=== PATIENT | female | born 1970 | race African-American/Black ===

== ENCOUNTER 2023-02-11 21:24 | Inpatient (IN) | payer MEDICAID ==
[~2023-02-11] VITALS: Ht 170.2 cm; Wt 59.0 kg
[2023-02-11] MEDS ORDERED: SODIUM CHLORIDE 0.9% 1000ML BAG (SEPSIS BOLUS) IV ONE (22:30)
[2023-02-11] MEDS ORDERED: CEFTRIAXONE 1GM PREMIX 50 ML IV ONE (22:30)
[2023-02-11 23:04] LABS: BASOPHILS % 0.5 % (0.0-2.0); EOSINOPHILS % 0.1 % (0.0-5.0); MEAN CORPUSCULAR HEMOGLOBIN 24.5 pg (28.0-32.0); MEAN CORPUSCULAR VOLUME 78.5 fL (81.0-99.0); MEAN PLATELET VOLUME 7.5 fl (7.4-10.4); NEUTROPHILS % 83.4 % (40.0-76.0); PLATELET 178 x1000/uL (130-400); RED BLOOD CELL COUNT 2.83 mill/uL (4.2-5.4); RED CELL DISTRIBUTION WIDTH 18.5 % (11.6-14.6)
[2023-02-11 23:10] LABS: CHLORIDE 94 mEq/L (98-107); HEMATOCRIT. 22.2 % (36.0-48.0); HEMOGLOBIN. 6.9 g/dL (12.0-16.0)
[2023-02-11 23:15] LABS: D-DIMER 0.63 mg/L FEU (<0.50); INR 1.2; PROTHROMBIN TIME 12.3 sec (9.6-11.0)
[2023-02-11 23:20] LABS: ETHANOL BLOOD < 10 mg/dL; HCG SCREEN NEGATIVE
[2023-02-11] MEDS ORDERED: VANCOMYCIN 1G PREMIX 200 ML IV ONE (23:30)
[2023-02-11] MEDS ORDERED: PIPERACILLIN/TAZ 3.375G PREMIX 50 ML IV ONE (23:30)
[2023-02-12] VITALS (70 sets, daily range): BP systolic 73–130; BP diastolic 35–71
[2023-02-12] MEDS ORDERED: ONDANSETRON HCL 4MG/2ML INJ IV PRN (01:15)
[2023-02-12] MEDS ORDERED: DEXTROSE 50% WATER 50ML SYRINGE IV PRN (01:15)
[2023-02-12] MEDS ORDERED: ACETAMINOPHEN 325MG TABLET PO PRN ×2 (01:15)
[2023-02-12] MEDS ORDERED: IPRATROPIUM/ALBUTEROL 0.5-3(2.5)MG/3ML NEB NEB PRN (01:15)
[2023-02-12] MEDS ORDERED: CLONIDINE 0.1MG TABLET PO PRN (01:15)
[2023-02-12 01:58] LABS: PHOSPHORUS 2.9 mg/dL (2.5-4.9)
[2023-02-12] MEDS ORDERED: MAGNESIUM 2 G PREMIX 50 ML IV NR (02:30)
[2023-02-12] MEDS: SODIUM CHLORIDE 0.9% 1,000 ML IV SCH ×2 (02:42→13:16)
[2023-02-12] MEDS ORDERED: PIPERACILLIN/TAZ 3.375G PREMIX 50 ML IV NR (03:00)
[2023-02-12] MEDS ORDERED: NOREPINEPHRINE 8 MG in DEXT 5% WATER 242 ML IV PRN (03:15)
[2023-02-12] MEDS: NOREPINEPHRINE 8 MG in DEXT 5% WATER 242 ML IV PRN ×2 (03:34→16:22)
[2023-02-12 05:05] LABS: CLARITY URINE CLOUDY (CLEAR); COLOR URINE YELLOW (YELLOW); KETONES URINE TRACE (NEGATIVE); LEUKOCYTE ESTERASE URINE TRACE (NEGATIVE); NITRITE URINE NEGATIVE (NEGATIVE); OCCULT BLOOD URINE NEGATIVE (NEGATIVE); PROTEIN URINE 1+ (NEGATIVE); SPECIFIC GRAVITY URINE 1.017 (1.005-1.030)
[2023-02-12] MEDS: BLOOD SUGAR DIAGNOSTIC STRIP TEST SCH ×4 (08:09→21:50)
[2023-02-12] MEDS: PANTOPRAZOLE SODIUM 40 MG/VIAL IV SCH (08:38)
[2023-02-12] MEDS: FERROUS SULFATE 325MG TABLET PO SCH ×3 (08:38→17:51)
[2023-02-12 08:57] LABS: CHLORIDE 100 mEq/L (98-107)
[2023-02-12] MEDS ORDERED: SULFAMETHOXAZOLE/TRIMETHOPRIM 800/160MG TABLET PO SCH (09:00)
[2023-02-12 09:09] LABS: HDL CHOLESTEROL 13 mg/dL (40-59); LDL CHOLESTEROL 30 mg/dL (5-100); T4 FREE 1.08 ng/dL (0.76-1.46)
[2023-02-12 09:26] LABS: FOLIC ACID (FOLATE) SERUM 7.2 ng/mL (>5.38)
[2023-02-12] MEDS: MIDODRINE HCL 2.5MG TABLET PO SCH ×3 (11:16→17:51)
[2023-02-12] MEDS ORDERED: POTASSIUM CHLORIDE 20MEQ/PACKET PO NR (11:30)
[2023-02-12] MEDS: PIPERACILLIN/TAZOBACTAM 3.375 G in DEXTROSE 5% WATER 50 ML IV SCH ×2 (14:17→22:15)
[2023-02-12] MEDS ORDERED: IOHEXOL-350 100 ML BOTTLE ONE (15:39)
[2023-02-13] VITALS (97 sets, daily range): BP systolic 64–116; BP diastolic 32–74
[2023-02-13] MEDS: SODIUM CHLORIDE 0.9% 1,000 ML IV SCH ×2 (04:27→16:45)
[2023-02-13] MEDS ORDERED: VASOPRESSIN 20 UNIT in SODIUM CHLORIDE 0.9% 99 ML IV PRN (05:45)
[2023-02-13] MEDS ORDERED: PHENYLEPHRINE 100 MG in DEXT 5% WATER 240 ML IV PRN (05:45)
[2023-02-13] MEDS ORDERED: DOPAMINE 800MG PREMIX (DOUBLE) 250 ML IV PRN (05:45)
[2023-02-13] MEDS: BLOOD SUGAR DIAGNOSTIC STRIP TEST SCH ×4 (07:50→20:46)
[2023-02-13] MEDS: MIDODRINE HCL 2.5MG TABLET PO SCH ×4 (08:59→17:00)
[2023-02-13] MEDS: PIPERACILLIN/TAZOBACTAM 3.375 G in DEXTROSE 5% WATER 50 ML IV SCH ×3 (08:59→22:00)
[2023-02-13] MEDS: PANTOPRAZOLE SODIUM 40 MG/VIAL IV SCH (09:00)
[2023-02-13] MEDS: SULFAMETHOXAZOLE/TRIMETHOPRIM 800/160MG TABLET PO SCH (09:01)
[2023-02-13] MEDS: FERROUS SULFATE 325MG TABLET PO SCH ×4 (09:03→18:20)
[2023-02-13] MEDS: RISPERIDONE 0.5MG TABLET PO SCH ×3 (11:00→20:46)
[2023-02-13] MEDS: NOREPINEPHRINE 8 MG in DEXT 5% WATER 242 ML IV PRN (20:47)
[2023-02-13 22:04] LABS: *AMPHETAMINES SCREEN URINE NEGATIVE (NEGATIVE); *BARBITURATES SCREEN URINE NEGATIVE (NEGATIVE); *BENZODIAZEPINES SCREEN URINE NEGATIVE (NEGATIVE); *COCAINE SCREEN URINE NEGATIVE (NEGATIVE); CANNABINOID URINE SCREEN NEGATIVE (NEGATIVE); METHADONE URINE SCREEN NEGATIVE (NEGATIVE); OPIATES URINE SCREEN NEGATIVE (NEGATIVE); PHENCYCLIDINE URINE SCREEN NEGATIVE (NEGATIVE)
[2023-02-14] VITALS (47 sets, daily range): BP systolic 63–133; BP diastolic 28–80
[2023-02-14] MEDS: SODIUM CHLORIDE 0.9% 1,000 ML IV SCH (05:57)
[2023-02-14] MEDS: PIPERACILLIN/TAZOBACTAM 3.375 G in DEXTROSE 5% WATER 50 ML IV SCH ×2 (06:00→13:52)
[2023-02-14] MEDS: BLOOD SUGAR DIAGNOSTIC STRIP TEST SCH ×2 (07:50→12:50)
[2023-02-14] MEDS: SULFAMETHOXAZOLE/TRIMETHOPRIM 800/160MG TABLET PO SCH (08:00)
[2023-02-14] MEDS: FERROUS SULFATE 325MG TABLET PO SCH ×2 (08:20→13:20)
[2023-02-14] MEDS: RISPERIDONE 0.5MG TABLET PO SCH (09:00)
[2023-02-14] MEDS: PANTOPRAZOLE SODIUM 40 MG/VIAL IV SCH (09:00)
[2023-02-14] MEDS: MIDODRINE HCL 2.5MG TABLET PO SCH ×2 (09:00→13:00)
== END 2023-02-14 15:30 | disposition left against medical advice (07) | DRG 720 ==
LOC: ER 21:24 → 7WST 23:35 → ENRESERV 02-12 01:58 → CVICU 02-12 06:00
PROVIDERS: ADMIT Internal Medicine; ATTEND Internal Medicine
DX: A41.9 Sepsis, unspecified organism (principal); R65.21 Severe sepsis with septic shock; E83.51 Hypocalcemia; F20.0 Paranoid schizophrenia; D50.9 Iron deficiency anemia, unspecified; F20.9 Schizophrenia, unspecified; F17.210 Nicotine dependence, cigarettes, uncomplicated; Z20.822 Contact with and (suspected) exposure to COVID-19; Z53.29 Procedure and treatment not carried out because of patient's decision for other reasons; Z21 Asymptomatic human immunodeficiency virus [HIV] infection status
CPT/HCPCS: 36415; 71045; 71275; 80053; 80061; 80305; 80320; 81003; 82607; 82728; 82746; 82962; 83036; 83540; 83550; 83605; 83735; 83880; 84100; 84145; 84439; 84443; 84484; 84703; 85025; 85044; 85379; 86850; 86900; 86920; 87426; 87804; 93005; 93306; 93970; 97162; 97165; 99291; C9113; C9803; J0696; J2543; J3370; J3475; J3490; J7030; J7060; Q9967; G0480